=== PATIENT | female | born 1995 | race Caucasian/White ===

== ENCOUNTER 2019-10-08 11:28 | Emergency (ER) | payer OTHER ==
[2019-10-08 11:42] VITALS: TEMP 98; BMI 17.0
--- NOTE | 2019-10-08 12:30 | PDOC ---
History of Present Illness - General Chief Complaint: Pain, Acute Stated Complaint: KIDNEY PAIN Time Seen by Provider: 10/08/19 11:58 History Source: Patient Exam Limitations: Clinical Condition - History of Present Illness Initial Comments: 10/08/19 12:26 Patient with a history of anorexia and chronic constipation being managed by eating disorder detention brought in from detention staff for evaluation of bilateral low back pain upon wake this morning. Patient reported pain to the lateral side of bilateral lower back. Patient does not recall if she has urinary frequency or burning with urination but denies urgency or dysuria. Patient reported having routine blood work done 3 days ago from the detention and was found to have elevated BUN on chemistry lab. Denies hematuria, nausea, vomiting, fever, chills. Patient has not taken anything for symptoms. Denies any other symptoms Is this a multiple visit Asthma Patient?: No Timing/Duration: 4-6 hours Past History - Past Medical History Allergies/Adverse Reactions: Allergies Allergy/AdvReac Type Severity Reaction Status Date / Time Penicillins Allergy Verified 10/08/19 11:42 Home Medications: Ambulatory Orders Methocarbamol [Robaxin -] 500 mg PO BID PRN #14 tablet 10/08/19 Naproxen 500 mg PO BID PRN #20 tablet 10/08/19 COPD: No - Psycho Social/Smoking Cessation Hx Smoking History: Never smoked Have you smoked in the past 12 months: No Information on smoking cessation initiated: No Hx Alcohol Use: No Drug/Substance Use Hx: No Review of Systems - Review of Systems Able to Perform ROS?: Yes Is the patient limited Mongolian proficient: No Constitutional: No: Chills, Fever, Malaise HEENTM: No: Symptoms Reported, See HPI, Eye Pain, Blurred Vision, Tearing, Recent change in vision, Double Vision, Cataracts, Ear Pain, Ocular Prothesis, Ear Discharge, Nose Pain, Nose Congestion, Tinnitus, Nose Bleeding, Hearing Loss , Throat Pain, Throat Swelling, Mouth Pain, Dental Problems, Difficulty Swallowing, Mouth Swelling, Other Respiratory: No: Symptoms reported, See HPI, Cough, Orthopnea, Shortness of Breath, SOB with Exertion, SOB at Rest, Stridor, Wheezing, Productive cough, Hemoptysis, Other Cardiac (ROS): No: Symptoms Reported, See HPI, Chest Pain, Edema, Irregular Heart Rate, Lightheadedness, Palpitations, Syncope, Chest Tightness, Other ABD/GI: Yes: Constipated. No: Symptoms Reported, See HPI, Abd. Pain w/ defecation, Blood Streaked Bowels, Diarrhea, Difficulty Swallowing, Nausea, Poor Appetite, Rectal Bleeding, Vomiting, Indigestion, Abdominal cramping : Yes: Symptoms Reported, See HPI, Pain (b/l back pain). No: Burning, Dysuria , Discharge, Frequency, Hematuria, Incontinence, Urgency Musculoskeletal: Yes: Symptoms Reported, See HPI, Back Pain (b/l lower back pain ) Integumentary: No: Symptoms Reported Neurological: No: Symptoms reported All Other Systems: Reviewed and Negative *Physical Exam - Vital Signs Last Vital Signs Temp Pulse Resp BP Pulse Ox 98 F 65 18 96/56 L 100 10/08/19 11:38 10/08/19 11:38 10/08/19 11:38 10/08/19 11:38 10/08/19 11:38 - Physical Exam 10/08/19 12:30 GENERAL: Well developed, well nourished. Awake and alert. No acute distress. HEENT: Normocephalic, atraumatic. PERRLA, EOMI. No conjunctival pallor. Sclera are non-icteric. Moist mucous membranes. Oropharynx is clear. NECK: Supple. Full ROM. CARDIOVASCULAR: Regular rate and rhythm. No murmurs, rubs, or gallops. Distal pulses are 2+ and symmetric. PULMONARY: No evidence of respiratory distress. Lungs clear to auscultation bilaterally. No wheezing, rales or rhonchi. ABDOMINAL: Soft. Non-tender. Non-distended. No rebound or guarding. No organomegaly. Normoactive bowel sounds. MUSCULOSKELETAL Normal range of motion at all joints. Mild tenderness of bilateral paravertebral muscle of lumbar spine of lateral aspect of the L4-L5. No midline tenderness. No CVA tenderness SKIN: Warm and dry. Normal capillary refill. No rashes. No jaundice. No cyanosis NEUROLOGICAL: Alert, awake, appropriate. Gait is normal without ataxia. PSYCHIATRIC: Cooperative. Good eye contact. Appropriate mood General Appearance: Yes: Nourished, Appropriately Dressed. No: Apparent Distress ED Treatment Course - LABORATORY CBC & Chemistry Diagram: 10/08/19 12:25 10/08/19 12:25 - RADIOLOGY Radiology Studies Ordered: Category Date Time Status SPIRAL- RENAL-STONE CT [CT] Stat CT Scan 10/08/19 12:07 Ordered Medical Decision Making - Medical Decision Making 10/08/19 12:28 Patient with a history of anorexia and chronic constipation being managed by eating disorder detention brought in from detention staff for evaluation of bilateral low back pain upon wake this morning. Patient reported pain to the lateral side of bilateral lower back. Patient does not recall if she has urinary frequency or burning with urination but denies urgency or dysuria. Patient reported having routine blood work done 3 days ago from the detention and was found to have elevated BUN on chemistry lab. Denies hematuria, nausea, vomiting, fever, chills. Patient has not taken anything for symptoms. Denies any other symptoms Exam significant for mild tenderness to bilateral paravertebral muscle of lumbar spine of L4-S1 on bilateral sides. No CVA tenderness. No midline tenderness. No abdominal tenderness on exam. Symptoms likely muscle pain versus less likely renal stone or UTI. Given patient history of elevated BUN, will do basic blood work to rule out UTI or bacteremia. Spiral CT ordered if negative test to rule out kidney stone. Treat based on lab and imaging results 10/08/19 13:39 CBC and chemistry lab unremarkable. UA normal and shows no acute abnormality. Urine test negative. Spiral CT showed moderate fecal otherwise unremarkable exam. Mild straightening of the spine on CT which could cause patient back pain due to spasm. Naproxen 5 mg p.o. and Robaxin 5 mg p.o. ordered for back pain and spasm. Patient stable for discharge on naproxen and Robaxin as needed for back pain with advised to increase fluid intake and increase fiber intake for constipation and continue with home medication for chronic constipation with PCP follow-up Discharge - Discharge Information Problems reviewed: Yes Clinical Impression/Diagnosis: Lumbago without sciatica Qualifiers: Chronicity: acute Back pain laterality: bilateral Qualified Code(s): M54.5 - Low back pain Constipation Qualifiers: Constipation type: unspecified constipation type Qualified Code(s): K59.00 - Constipation, unspecified Condition: Stable Disposition: HOME - Admission No - Additional Discharge Information Prescriptions: Methocarbamol [Robaxin -] 500 mg PO BID PRN #14 tablet PRN Reason: Back Pain Naproxen 500 mg PO BID PRN #20 tablet PRN Reason: Back Pain - Follow up/Referral - Patient Discharge Instructions Patient Printed Discharge Instructions: DI for Low Back Pain, Increased Dietary Fiber May Improve Constipation Conditions With Pelvic Leandro, DI for Constipation Additional Instructions: Your blood work was normal. Your abdominal CAT scan shows straightening of the spine which could be causing back pain due to back spasm. CAT scan also shows moderate stool in the abdomen consistent with constipation. Take prescribed medication as prescribed for back pain and apply hot compress 2-3 times a day as needed for back pain. Increase fluid intake and increase fiber intake to help with constipation. Follow-up with primary care - Post Discharge Activity
[2019-10-08 12:33] LABS: BASO % 0.9 % (0-2.0); EOS % 5.6 % (0-4.5); HEMATOCRIT 36.5 % (32.4-45.2); HEMOGLOBIN 12.1 GM/dL (10.7-15.3); LYMPH % 32.1 % (8-40); MCH 32.5 pg (25.7-33.7); MCHC 33.2 g/dl (32.0-36.0); MONO % 11.4 % (3.8-10.2); PLATELET COUNT 205 K/MM3 (134-434); RBC 3.73 M/mm3 (3.60-5.2); RDW 14.1 % (11.6-15.6); WHITE BLOOD COUNT 4.9 K/mm3 (4.0-10.0)
[2019-10-08 12:34] LABS: URINE APPEARANCE Clear; URINE BILIRUBIN Negative (NEGATIVE); URINE COLOR Yellow; URINE GLUCOSE (UA) Negative (NEGATIVE); URINE KETONE Negative (NEGATIVE); URINE LEUK ESTERASE 1+ (NEGATIVE); URINE NITRITE Negative (NEGATIVE); URINE PROTEIN Negative (NEGATIVE); URINE UROBILINOGEN 0.2 mg/dL (0.2-1.0)
[2019-10-08 12:45] LABS: EPI CELLS 1.9 /HPF (0-5/HPF); HYALINE CASTS 0.35 /lpf (0-8); URINE BACTERIA 6.9 /hpf (NEGATIVE); URINE RBC 0.8 /hpf (0-4); URINE WBC 4.3 /hpf (0-5)
[2019-10-08 13:15] LABS: ALBUMIN 3.9 g/dl (3.4-5.0); BILIRUBIN,TOTAL 0.2 mg/dL (0.2-1); BLOOD UREA NITROGEN 25.4 mg/dL (7-18); CALCIUM 9.3 mg/dL (8.5-10.1); CREATININE 0.9 mg/dL (0.55-1.3); POTASSIUM 4.5 mmol/L (3.5-5.1); TOT PROT 7.5 g/dl (6.4-8.2)
[2019-10-08] MEDS ORDERED: METHOCARBAMOL 500 MG TABLET PO ONE (13:31)
[2019-10-08] MEDS ORDERED: NAPROXEN 500 MG TABLET PO ONE (13:31)
[2019-10-08] MEDS ORDERED: METHOCARBAMOL 500 MG TABLET ONE (13:44)
[2019-10-08] MEDS ORDERED: NAPROXEN 500 MG TABLET ONE (13:44)
[2019-10-08 13:47] VITALS: BP 122/73; PULSE 89
== END 2019-10-08 14:00 | disposition home or self-care (01) ==
LOC: JER 11:28 → SUPCPDRO 11:28 → JER 14:00
DX: K59.00 Constipation, unspecified (principal); M54.5 Low back pain; F50.89 Other specified eating disorder
CPT/HCPCS: 36415; 74176-TC; 80053; 81003; 84703; 85025; 87086; 99282-25